=== PATIENT | female | born 1965 | race African-American/Black ===

== ENCOUNTER 2023-07-01 18:34 | Emergency (ER) | payer OTHER, SELFPAY ==
[2023-07-01 18:36] VITALS: BP 137/77; PULSE 96; RESP 20; TEMP 36.4; O2SAT 99
--- NOTE | 2023-07-01 19:00 | PC.NURSE ---
pt. to desk stating I can't wait forever, I am going home. Pt. NAD upon departure.
== END 2023-07-01 19:00 | disposition left against medical advice (07) ==
DX: M54.2 Cervicalgia (principal)
CPT/HCPCS: 99199

== ENCOUNTER 2025-05-10 13:11 | Outpatient (CLI) | payer OTHER, SELFPAY ==
--- NOTE | ~2025-05-10 | XR_ITS ---
XR shoulder RT min 2V 05/10/2025 13:30 Indication: Right shoulder pain Procedure: 4 views right shoulder Comparison: No prior studies for comparison. Findings: There is polyarticular osteoarthritis of the right shoulder. No fracture, subluxation or dislocation. No soft tissue abnormality. No foreign body. Impression: 1: Mild polyarticular osteoarthritis of the right shoulder. Reviewed, dictated and finalized at location O. NG MACHINE SET UP OPERATOR TOOL Impression: 1: Mild polyarticular osteoarthritis of the right shoulder.
== END 2025-05-10 13:12 | disposition home or self-care (01) ==
LOC: MICIMG 13:15
PROVIDERS: PCP Nurse Practitioner Family; Visit Provider Nurse Practitioner Family
DX: M25.511 Pain in right shoulder (principal)
CPT/HCPCS: 73030